=== PATIENT | male | born 1965 | race Caucasian/White ===

== ENCOUNTER 2022-05-11 17:54 | Inpatient (IN) | payer MEDICAID ==
[~2022-05-11] VITALS: Ht 165.1 cm; Wt 75.5 kg
[2022-05-11] MEDS ORDERED: ASPIRIN 81 MG TAB.CHEW PO ONE (18:15)
[2022-05-11] MEDS ORDERED: ALBUTEROL SULFATE 2.5 MG/3 ML NEBU NEB ONE (18:15)
[2022-05-11] MEDS ORDERED: ALBUTEROL SULFATE 2.5 MG/3 ML NEBU ONE (18:20)
[2022-05-11] MEDS ORDERED: ASPIRIN 81 MG TAB.CHEW ONE (18:22)
[2022-05-11 18:25] LABS: MEAN CORPUSCULAR HEMOGLOBIN 29.4 uug (23.8-33.4); PLATELET COUNT (AUTO) 281 K/uL (152-348)
--- NOTE | 2022-05-11 18:27 | NUR ---
56 years old male walk in to er c/o sob denies cp, nausea vomiting. placed on cartridge loader continuous pulse ox, EKG completed handed to Dr Gallagher, lab x-ray done result in pending. Rt at bedside for breathing treatment.
[2022-05-11 18:37] LABS: CARBON DIOXIDE 25 mmol/L (21-32); CHLORIDE 102 mmol/L (98-107); CREATININE 1.8 mg/dL (0.6-1.3); GLUCOSE 125 mg/dL (74-106); POTASSIUM 4.5 mmol/L (3.5-5.1); UREA NITROGEN, BLOOD 32 mg/dL (7-18)
--- NOTE | 2022-05-11 18:40 | NUR ---
[facility] called and awaiting for call back Dr Ho.
[2022-05-11 18:49] LABS: ALANINE AMINOTRANSFERASE 77 U/L (16-63); ALKALINE PHOSPHATASE 107 U/L (50-136); ASPARTATE AMINOTRANSFERASE 77 U/L (15-37); BILIRUBIN,DIRECT 0.2 mg/dL (0.0-0.2); BILIRUBIN,TOTAL 0.8 mg/dL (0.2-1.0); TOTAL PROTEIN, SERUM 6.5 g/dL (6.4-8.2)
[2022-05-11] MEDS ORDERED: FUROSEMIDE 40 MG/4 ML VIAL ONE (18:57)
[2022-05-11] MEDS ORDERED: FUROSEMIDE 40 MG/4 ML VIAL IV ONE (19:00)
--- NOTE | 2022-05-11 19:52 | NUR ---
Patient sitting up at bedside with o2 around his neck, not in use, reapplied. Updated on plan of care, assisted into gown. Patient is alert and oriented x 4, lungs are clear, abd soft non tender to palpation, no s/s of any edema noted at this time. saline lock intact, will continue to monitor.
[2022-05-11] MEDS ORDERED: CEFTRIAXONE 1 G in IV DEXTROSE 5% 50 ML IV SCH (20:00)
[2022-05-11] MEDS ORDERED: AZITHROMYCIN IV 500 MG in IV DEXTROSE 5% 250 ML IV SCH (20:00)
[2022-05-11] MEDS ORDERED: ONDANSETRON 4 MG/2 ML VIAL IV PRN (20:00)
[2022-05-11] MEDS ORDERED: ACETAMINOPHEN 325 MG TABLET PO PRN (20:00)
[2022-05-11] MEDS ORDERED: CEFTRIAXONE /D5W 50ML IVPB **ER PYXIS IV ONE (20:42)
--- NOTE | 2022-05-11 20:56 | NUR ---
FAMILY AT BEDSIDE AWARE PATIENT WILL BE ADMITTED.
--- NOTE | 2022-05-11 21:30 | NUR ---
Report given to Amparo, accepting nurse. Patient remains stable for transport to unit.
--- NOTE | 2022-05-11 21:55 | NUR ---
Received patient from ER via AARON ruiz x4. On O2 2L/min via nc, HOB elevated, appears short of breath sating @ 98%. Sinus rhythm on tele with HR 104. Routine admission care rendered, oriented to room, TV, phone and BR. Care plan initiated. Needs assessed and attended to.
[2022-05-11 22:00] VITALS: BP 139/107
[2022-05-11] MEDS: DOCUSATE SODIUM 100 MG CAPSULE PO SCH (22:11)
[2022-05-11] MEDS ORDERED: LEVALBUTEROL HCL NEB 0.63 MG/3 ML NEBU NEB PRN (22:45)
--- NOTE | 2022-05-11 22:45 | NUR ---
Patient in resp distress, restless, short of breath and desating. Dr Ho notified of patient present condition with new order to put patient on BIPAP. RT notified.
[2022-05-12] VITALS (17 sets, daily range): BP systolic 100–158; BP diastolic 63–110
--- NOTE | 2022-05-12 02:30 | NUR ---
Patient is agitated, removing BIPAP stated it's not helping him, also c/o abdominal pain. Assessed abdomen, soft to touch non distended, he had bowel movement. SOB, in resp distress, using accessory muscles. Informed Domi Beaver NP with order noted and carried out. Son Wale spoke to patient and was able to pacify him.
[2022-05-12] MEDS ORDERED: HYDROCODONE/APAP 10-325 MG TABLET PO PRN (02:45)
[2022-05-12 04:50] LABS: ABG BASE EXCESS -14.7 mmol/L; ABG HCO3 10.3 mmol/L; ABG PCO2 23.7 mmHg (35.0-45.0); ABG PH 7.258 (7.350-7.450); ABG PO2 570.9 mmHg (75.0-100.0); ABG SITE RIGHT RADIAL; VENT MODE BIPAP
--- NOTE | 2022-05-12 04:54 | NUR ---
ABG results relayed to Domi Beaver NP with order to give 1 amp rangel, noted and carried out.
[2022-05-12] MEDS ORDERED: SODIUM BICARBONATE 8.4% 50 MEQ/50 ML DISP.SYRIN IV ONE (05:15)
[2022-05-12 06:07] LABS: HEMATOCRIT 50.9 % (36.7-47.1); MEAN CORPUSCULAR HEMOGLOBIN 28.9 uug (23.8-33.4); MEAN CORPUSCULAR VOLUME 92.4 fL (73.0-96.2); PLATELET COUNT (AUTO) 176 K/uL (152-348)
[2022-05-12] MEDS: PANTOPRAZOLE SODIUM 40 MG TABLET.DR PO SCH (06:33)
[2022-05-12 06:46] LABS: BILIRUBIN,TOTAL 2.2 mg/dL (0.2-1.0); MAGNESIUM 2.3 mg/dL (1.8-2.4); TOTAL PROTEIN, SERUM 5.7 g/dL (6.4-8.2)
[2022-05-12 06:55] LABS: THYROID STIMULATING HORMONE 3.094 mIU/mL (0.358-3.740)
[2022-05-12 07:07] LABS: PHOSPHOROUS 9.5 mg/dL (2.5-4.9); POTASSIUM 7.7 mmol/L (3.5-5.1)
--- NOTE | 2022-05-12 07:12 | NUR ---
Critical lab results reported to Domi Beaver NP with order to inform Nephro. Endorsed to morning shift.
[2022-05-12] MEDS: ASPIRIN EC 81 MG TABLET.DR PO SCH (08:46)
[2022-05-12] MEDS ORDERED: FUROSEMIDE 20 MG/2 ML VIAL IV ONE (09:00)
[2022-05-12] MEDS ORDERED: HEPARIN/D5W DRIP 500 ML IV PRN (09:00)
--- NOTE | 2022-05-12 09:00 | NUR ---
Patient is transferred to CCU
[2022-05-12 09:10] LABS: HEMATOCRIT 49.1 % (36.7-47.1); MEAN CORPUSCULAR HEMOGLOBIN 28.9 uug (23.8-33.4); MEAN CORPUSCULAR VOLUME 90.5 fL (73.0-96.2); PLATELET COUNT (AUTO) 161 K/uL (152-348)
[2022-05-12 09:37] LABS: CREATININE 2.5 mg/dL (0.6-1.3)
[2022-05-12 09:52] LABS: BILIRUBIN,TOTAL 1.7 mg/dL (0.2-1.0); MAGNESIUM 2.1 mg/dL (1.8-2.4); PHOSPHOROUS 7.1 mg/dL (2.5-4.9); TOTAL PROTEIN, SERUM 5.6 g/dL (6.4-8.2)
[2022-05-12 10:07] LABS: ABG BASE EXCESS -1.2 mmol/L; ABG HCO3 23.6 mmol/L; ABG PCO2 40.3 mmHg (35.0-45.0); ABG PH 7.386 (7.350-7.450); ABG PO2 159.8 mmHg (75.0-100.0); ABG SITE RIGHT RADIAL; ABG TOTAL HEMOGLOBIN 16.7 G/dL (13.5-18.0); COHb 0.6 % (0.5-1.5); MetHb 0.3 % (0.0-1.5); O2Hb 98.3 % (94.0-97.0); VENT MODE BIPAP5/5
[2022-05-12] MEDS: MEROPENEM 500 MG in IV NORMAL SALINE 50 ML IV SCH ×2 (10:07→21:23)
[2022-05-12] MEDS ORDERED: HEPARIN SODIUM,PORCINE 5,000 UNITS/ML VIAL IV ONE (10:45)
[2022-05-12] MEDS ORDERED: VANCOMYCIN IV 1,250 MG in IV DEXTROSE 5% 250 ML IV ONE (11:00)
[2022-05-12] MEDS ORDERED: METOLAZONE 2.5 MG TABLET PO ONE (12:00)
[2022-05-12] MEDS: FUROSEMIDE 40 MG/4 ML VIAL IV SCH ×2 (12:26→21:23)
[2022-05-12] MEDS: methylPREDNISolone SOD SUCC 40 MG/ML VIAL IV SCH ×2 (13:27→21:24)
[2022-05-12 14:26] LABS: *URINE TOTAL PROTEIN RANDOM 33.4 mg/dL (<150/24HR)
[2022-05-12 14:37] LABS: *BILIRUBIN,URIN NEGATIVE (NEGATIVE); *BLOOD, URINE 2+ (NEGATIVE); *CLARITY,URINE SLIGHTLY CLOUDY (CLEAR); *COLOR,URINE YELLOW (YELLOW); *KETONES,URINE NEGATIVE (NEGATIVE); LEUKOCYTE ESTERASE ,URINE NEGATIVE (NEGATIVE); NITRITE, URINE NEGATIVE (NEGATIVE); PH,URINE 5.5 (5.0-8.0); UGLUCOSE NEGATIVE (NEGATIVE)
[2022-05-12 14:48] LABS: *AMPHETAMINE, URINE POSITIVE (NEGATIVE); *CANNABINOID, URINE POSITIVE (NEGATIVE); *COCCAINE, URINE NEGATIVE (NEGATIVE); *PHENCYCLIDINE SCREEN,URINE NEGATIVE (NEGATIVE)
[2022-05-12 15:32] LABS: BACTERIA,URINE NONE SEEN /HPF (NONE SEEN); SQUAMOUS EPITHELIAL CELL,UR NONE SEEN /HPF (NONE SEEN); WBC,URINE 0-3 /HPF (0-3)
[2022-05-12] MEDS: DOCUSATE SODIUM 100 MG CAPSULE PO SCH (21:23)
[2022-05-13] VITALS (16 sets, daily range): BP systolic 111–130; BP diastolic 66–95
--- NOTE | 2022-05-13 01:18 | NUR ---
Call placed to Domi Mann re: Aptt 31.0. REpeat coag. or continue protocol for now . Awaiting call back
[2022-05-13] MEDS ORDERED: HEPARIN SODIUM,PORCINE 5,000 UNITS/ML VIAL ONE (02:31)
--- NOTE | 2022-05-13 02:46 | NUR ---
Per Heparin protocol, 5400 units heparin given as bolus and heparin gtts. increased by rate of 250 units per hour. drip rate currently increased to 24cc/hr. conc, remqains 25,000 units in 500 cc. Pt weight 86 kg. Nursing Gas Plant Specialist present for verification of orders.
[2022-05-13 05:19] LABS: HEMATOCRIT 52.6 % (36.7-47.1); MEAN CORPUSCULAR HEMOGLOBIN 29.2 uug (23.8-33.4); MEAN CORPUSCULAR VOLUME 88.8 fL (73.0-96.2); PLATELET COUNT (AUTO) 204 K/uL (152-348)
[2022-05-13] MEDS: methylPREDNISolone SOD SUCC 40 MG/ML VIAL IV SCH ×3 (05:27→21:12)
--- NOTE | 2022-05-13 05:39 | NUR ---
#20 to Left AC dislodged by pt. Unable to save line. Cathlon removed intact and severely bent. Heparin gtts. placed to # 20 in lower left medial forearm. # 22 placed in left hand w/o incident. Pt. scheduled for midline insertion this a.m.
[2022-05-13 05:45] LABS: BILIRUBIN,TOTAL 1.5 mg/dL (0.2-1.0); CREATININE 2.8 mg/dL (0.6-1.3); MAGNESIUM 1.9 mg/dL (1.8-2.4); PHOSPHOROUS 5.9 mg/dL (2.5-4.9); POTASSIUM 3.2 mmol/L (3.5-5.1); TOTAL PROTEIN, SERUM 5.7 g/dL (6.4-8.2)
--- NOTE | 2022-05-13 06:08 | NUR ---
Call placed to [facility] to report critical lab values. Troponin 955. K+ = 3.2 T.O. for KCL 20 meq. PO x 1 dose
[2022-05-13] MEDS ORDERED: POTASSIUM CHLORIDE 20 MEQ TAB.PRT.SR PO ONE (06:15)
[2022-05-13] MEDS: PANTOPRAZOLE SODIUM 40 MG TABLET.DR PO SCH (06:22)
--- NOTE | 2022-05-13 07:18 | NUR ---
Report to Qian JOYCE . Pt. with no acute change in condition. KCL 20 meq given PO for lab value of 3.2 05/13/22
[2022-05-13 08:13] LABS: ABG BASE EXCESS 4.9 mmol/L; ABG HCO3 28.5 mmol/L; ABG PCO2 38.6 mmHg (35.0-45.0); ABG PH 7.486 (7.350-7.450); ABG PO2 77.9 mmHg (75.0-100.0); ABG SITE RIGHT RADIAL; ABG TOTAL HEMOGLOBIN 18.5 G/dL (13.5-18.0); COHb 0.4 % (0.5-1.5); MetHb 0.5 % (0.0-1.5); O2Hb 94.7 % (94.0-97.0); VENT MODE Nasal Cannula
[2022-05-13] MEDS: FUROSEMIDE 40 MG/4 ML VIAL IV SCH (08:24)
[2022-05-13] MEDS: ASPIRIN EC 81 MG TABLET.DR PO SCH (08:24)
[2022-05-13] MEDS ORDERED: POTASSIUM CHLORIDE 20 MEQ POWDER PACKET PO ONE (09:00)
[2022-05-13] MEDS ORDERED: FUROSEMIDE 40 MG/4 ML VIAL IV SCH (09:00)
[2022-05-13] MEDS: MEROPENEM 500 MG in IV NORMAL SALINE 50 ML IV SCH ×2 (09:01→21:12)
--- NOTE | 2022-05-13 09:01 | NUR ---
Welcome Wagon Host/Hostess Dr. Caceres in the unit to examine pt. report given orders to stop heparin drip received.
[2022-05-13] MEDS ORDERED: VANCOMYCIN IV 1,250 MG in IV DEXTROSE 5% 250 ML IV ONE (12:00)
[2022-05-13] MEDS ORDERED: ENOXAPARIN SODIUM 100 MG/ML DISP.SYRIN SQ SCH (12:00)
--- NOTE | 2022-05-13 16:03 | NUR ---
A call to attending Dr. Ho and orders to down grade pt. to telemetry unit received.
--- NOTE | 2022-05-13 16:34 | NUR ---
Telephone report given to Peter Grossman. all systems addressed and questions answered. Pt. remains AAOx4. ambulatory able to use BSC with minimal assistance. ML and Peripheral IV access patent. 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
--- NOTE | 2022-05-13 16:43 | NUR ---
Peter Grossman and Sarah in to pickling drum operator pt. who feels comfortable, pt. left the room walking,. talking.
--- NOTE | 2022-05-13 16:55 | NUR ---
PATIENT PICKED UP FROM CCU AWAKE ALERT AND ORIENTED DENIES PAIN OR DISCOMFORTS ON TELE SR WITH NO ECTOPY HAS 2 HEP LOCKS AND A MIDLINE WHICH IS INTACT AT THIS TIME PATIENT ORIENTED TO ROOM AND FACILITY PROTOCOL MADE COMFORTABLE WILL CONTINUE TO OBSERVE.
--- NOTE | 2022-05-13 19:30 | NUR ---
Received patient sitting on the bed. Family at bedside. AAOx4. In no acute distress. Denies any pain or SOB. NSR on tele with HR of 84/min. Midline on left upper arm, PIV on left FA and left hand intact and patent. Needs assessed and attended to. Safety measure initiated and call light within reached.
[2022-05-13] MEDS: DOCUSATE SODIUM 100 MG CAPSULE PO SCH (21:12)
--- NOTE | 2022-05-13 21:25 | NUR ---
Dr Mortensen into visit with order to discontinue bladder scan order, noted and carried out.
[2022-05-14] VITALS: BP 120/78
[2022-05-14 04:00] VITALS: BP 126/72
--- NOTE | 2022-05-14 05:11 | NUR ---
Slept well through out the night. No complain of pain or SOB. No adverse effect noted from IV antibiotic. Needs attended to and met. Safety measure maintained and call light within reached.
[2022-05-14] MEDS: methylPREDNISolone SOD SUCC 40 MG/ML VIAL IV SCH ×3 (06:07→21:14)
[2022-05-14] MEDS: PANTOPRAZOLE SODIUM 40 MG TABLET.DR PO SCH (06:07)
[2022-05-14 06:52] LABS: HEMATOCRIT 49.2 % (36.7-47.1); MEAN CORPUSCULAR HEMOGLOBIN 29.3 uug (23.8-33.4); MEAN CORPUSCULAR VOLUME 89.7 fL (73.0-96.2); PLATELET COUNT (AUTO) 202 K/uL (152-348)
--- NOTE | 2022-05-14 07:25 | NUR ---
RECEIVED PATIENT IN BED AWAKE ALERT AND ORIENTED ON ROOM AIR WITH NO SOB TELE IS SR WITH NO ECTOPY.DENIES PAIN OR DISCOMFORTS CALL LIGHTS AND PERSONAL BELONGINGS ARE WITHIN EASY REACH WILL CONTINUE TO OBSERVE.
[2022-05-14 07:35] LABS: BILIRUBIN,TOTAL 1.2 mg/dL (0.2-1.0); CREATININE 2.2 mg/dL (0.6-1.3); TOTAL PROTEIN, SERUM 5.6 g/dL (6.4-8.2)
[2022-05-14] MEDS ORDERED: ALBUTEROL SULFATE 1.25 MG/3 ML NEBU NEB PRN (08:00)
[2022-05-14 08:01] LABS: POTASSIUM 2.8 mmol/L (3.5-5.1)
[2022-05-14] MEDS ORDERED: ENOXAPARIN SODIUM 100 MG/ML DISP.SYRIN SQ SCH (09:00)
[2022-05-14] MEDS: MEROPENEM 500 MG in IV NORMAL SALINE 50 ML IV SCH (09:24)
[2022-05-14] MEDS: ENOXAPARIN SODIUM 80 MG/0.8 ML DISP.SYRIN SQ SCH (09:25)
[2022-05-14] MEDS ORDERED: POTASSIUM CHLORIDE 20 MEQ TAB.PRT.SR PO ONE ×2 (09:30→14:45)
[2022-05-14] MEDS: FUROSEMIDE 40 MG TABLET PO SCH (09:41)
[2022-05-14] MEDS: METOPROLOL SUCCINATE XL 50 MG TAB.SR.24H PO SCH (09:41)
[2022-05-14] MEDS: ASPIRIN EC 81 MG TABLET.DR PO SCH (09:42)
[2022-05-14] MEDS ORDERED: VANCOMYCIN IV 1,250 MG in IV DEXTROSE 5% 250 ML IV ONE (10:00)
[2022-05-14 11:07] LABS: A/G RATIO 0.9 (0.7-1.7); ALBUMIN 2.4 g/dL (2.9-4.4); ALPHA-1-GLOBULIN 0.2 g/dL (0.0-0.4); ALPHA-2-GLOBULIN 0.6 g/dL (0.4-1.0); BETA GLOBULIN 0.8 g/dL (0.7-1.3); GAMMA GLOBULIN 1.1 g/dL (0.4-1.8); GLOBULIN, TOTAL 2.8 g/dL (2.2-3.9); M-SPIKE Not Observed g/dL (Not Observed)
[2022-05-14 11:32] VITALS: BP 114/74
[2022-05-14] MEDS ORDERED: POTASSIUM CHLORIDE 10 MEQ TAB.PRT.SR PO ONE (13:00)
[2022-05-14 15:42] VITALS: BP 110/69
--- NOTE | 2022-05-14 19:30 | NUR ---
Received patient lying in the bed. AAOx4. In no apparent distress. Denies any pain or SOB. NSR on tele with HR of 84/min. Midline on left upper arm, PIV on left FA and left hand remains intact and patent. Needs assessed and attended to. Safety measure initiated and call light within reached.
[2022-05-14 20:00] VITALS: BP 119/72
[2022-05-14] MEDS: DOCUSATE SODIUM 100 MG CAPSULE PO SCH (20:25)
[2022-05-15] VITALS: BP 122/75
[2022-05-15 04:00] VITALS: BP 112/78
--- NOTE | 2022-05-15 05:07 | NUR ---
Slept through out the night with no complain of pain or SOB. NSR on tele with HR of 71/min. Needs attended to and met.
[2022-05-15] MEDS: methylPREDNISolone SOD SUCC 40 MG/ML VIAL IV SCH (05:54)
[2022-05-15] MEDS: PANTOPRAZOLE SODIUM 40 MG TABLET.DR PO SCH (06:01)
[2022-05-15 06:39] LABS: HEMATOCRIT 49.4 % (36.7-47.1); MEAN CORPUSCULAR HEMOGLOBIN 29.2 uug (23.8-33.4); MEAN CORPUSCULAR VOLUME 89.6 fL (73.0-96.2); PLATELET COUNT (AUTO) 185 K/uL (152-348)
[2022-05-15 06:52] LABS: BILIRUBIN,TOTAL 0.9 mg/dL (0.2-1.0); CREATININE 1.6 mg/dL (0.6-1.3); MAGNESIUM 2.1 mg/dL (1.8-2.4); POTASSIUM 3.5 mmol/L (3.5-5.1); TOTAL PROTEIN, SERUM 5.7 g/dL (6.4-8.2)
--- NOTE | 2022-05-15 07:34 | NUR ---
RECEIVED PATIENT IN BED AWAKE WATCHING TV ALERT AND ORIENTED ON ROOM AIR SR WITH NO ECTOPY DENIES PAIN OR DISCOMFORTS AT THIS TIME REMAIN ON ATB WITH NO ADVERSE OR ALLERGIC REACTIONS AT THIS TIME.CALL LIGHTS AND PERSONAL BELONGINGS ARE WITHIN EASY REACH WILL CONTINUE TO OBSERVE.
[2022-05-15] MEDS: ASPIRIN EC 81 MG TABLET.DR PO SCH (08:26)
[2022-05-15] MEDS: POTASSIUM CHLORIDE 20 MEQ TAB.PRT.SR PO SCH ×2 (08:26→11:56)
[2022-05-15] MEDS: FUROSEMIDE 40 MG TABLET PO SCH (08:26)
[2022-05-15] MEDS: METOPROLOL SUCCINATE XL 50 MG TAB.SR.24H PO SCH (08:27)
[2022-05-15] MEDS: ENOXAPARIN SODIUM 80 MG/0.8 ML DISP.SYRIN SQ SCH (08:28)
[2022-05-15 08:36] LABS: BILIRUBIN,DIRECT 0.3 mg/dL (0.0-0.2); BILIRUBIN,TOTAL 0.9 mg/dL (0.2-1.0); PHOSPHOROUS 3.9 mg/dL (2.5-4.9)
--- NOTE | 2022-05-15 11:00 | NUR ---
NEW ORDERS NOTED FROM DR SIMON FOR DISCHARGE THE PLAN IS THAT PATIENT WILL BE DISCHARGED TO [facility] FOR CARDIAC CATH TOMORROW PATIENT AWARE AND EXPRESSED UNDERSTANDING OF PLAN OF CARE.
--- NOTE | 2022-05-15 13:13 | NUR ---
POTASSIUM LEVEL TODAY IS 3.5 WITH ORDERS TO GIVE MORE ORAL POTASSIUM TO BOOST LEVEL.
[2022-05-15 13:30] VITALS: BP 115/84
[2022-05-15 16:22] VITALS: BP 123/77
--- NOTE | 2022-05-15 17:53 | NUR ---
CALLED [facility] [place] AND REPORT GIVEN TO STANLEY JOYCE FOR CONTINUING CARE PATIENT WILL BE PICKED UP BY [facility] AT 8PM AND PER YANCY HOLISTIC NUTRITIONIST LIFE VEST WILL BE DELIVERED TO THE PATIENT AT [place] AND SHE EXPRESSED UNDERSTANDING.
--- NOTE | 2022-05-15 20:35 | NUR ---
Patient picked up by [facility] Ambulance unit [facility], accompanied by 2 paramedics via gurney. Patient also present during transfer. Patient AAOx4. In no acute distress. VS WNL. All belongings with patient. Paper work/records provided and given to paramedics.
[2022-05-15] MEDS ORDERED: ENOXAPARIN SODIUM 80 MG/0.8 ML DISP.SYRIN SQ SCH (21:00)
[2022-05-16] MEDS ORDERED: methylPREDNISolone SOD SUCC 40 MG/ML VIAL IV SCH (09:00)
== END 2022-05-15 21:23 | disposition short-term general hospital (02) | DRG 133 ==
LOC: ER 17:54 → TELE 19:15 → CCU 05-12 09:26 → TELE3 05-13 16:59
PROVIDERS: ADMIT Internal Medicine; ATTEND Internal Medicine
PROC: 5A09457 Assistance with Respiratory Ventilation, 24-96 Consecutive Hours, Continuous Positive Airway Pressure (ICD-10-PCS; principal; 2022-05-11)
PROC: 05H633Z Insertion of Infusion Device into Left Subclavian Vein, Percutaneous Approach (ICD-10-PCS; 2022-05-13)
PROC: B547ZZA Ultrasonography of Left Subclavian Vein, Guidance (ICD-10-PCS; 2022-05-13)
DX: J96.01 Acute respiratory failure with hypoxia (principal); N17.0 Acute kidney failure with tubular necrosis; K72.00 Acute and subacute hepatic failure without coma; E44.0 Moderate protein-calorie malnutrition; I50.23 Acute on chronic systolic (congestive) heart failure; I21.4 Non-ST elevation (NSTEMI) myocardial infarction; I13.0 Hypertensive heart and chronic kidney disease with heart failure and stage 1 through stage 4 chronic kidney disease, or unspecified chronic kidney disease; E87.20 Acidosis, unspecified; E66.9 Obesity, unspecified; E78.5 Hyperlipidemia, unspecified; I42.0 Dilated cardiomyopathy; N18.9 Chronic kidney disease, unspecified; Z20.822 Contact with and (suspected) exposure to COVID-19; Z68.27 Body mass index [BMI] 27.0-27.9, adult; F10.21 Alcohol dependence, in remission; F17.210 Nicotine dependence, cigarettes, uncomplicated; J44.9 Chronic obstructive pulmonary disease, unspecified; R73.9 Hyperglycemia, unspecified
CPT/HCPCS: 36415; 36600; 71045; 76700; 82803; 83605; 83690; 83735; 83970; 84100; 84155; 84156; 84165; 84300; 84443; 84484; 85025; 85730; 93005; 93307; 94660; G0378; J0456; J0696; J1644; J1650; J1940; J2185; J2920; J3490; J7050